=== PATIENT | female | born 1990 | race Caucasian/White ===

== ENCOUNTER 2016-08-30 00:22 | Emergency (ER) | payer OTHER ==
[~2016-08-30] VITALS: Ht 152.4 cm; Wt 60.1 kg
[~2016-08-30 00:22] MED LIST: BUPROPION HCL150 M2 PO; CLEOCIN300 MG PO; CLINDAMYCIN HC150 MG PO; MOBIC7.5 MG PO; MOTRIN600 MG PO; NAPROSYN500 MG PO; NOHOMEMEDS; PERCOCET 10/1 TABLET PO; PERCOCET 5/31 TABLET PO; TRAMADOL HCL50 MG PO; VENTOLIN HFA18 GM IH
[2016-08-30 00:27] VITALS: BP 111/78
== END 2016-08-30 04:34 | disposition home or self-care (01) ==
LOC: EME 00:22
DX: S60.221A Contusion of right hand, initial encounter (principal); W22.09XA Striking against other stationary object, initial encounter
CPT/HCPCS: 73130; 99281; 99283